=== PATIENT | female | born 1985 ===

== ENCOUNTER 2021-05-28 04:34 | Emergency (ER) | payer BC ==
[2021-05-28] MEDS ORDERED: SODIUM CHLORIDE 0.9% 1000 ML 1,000 ML IV ONE ×2 (04:46→08:59)
[2021-05-28 05:11] LABS: Basophils # (Auto) 0.1 K/mm3 (0.0-0.1); Basophils % (Auto) 1.3 % (0.0-1.8); Eosinophils # (Auto) 0.2 K/mm3 (0.0-0.4); Eosinophils % (Auto) 2.5 % (0.0-4.3); Hematocrit 39.1 % (30.3-42.9); Hemoglobin 12.9 gm/dl (10.1-14.3); Lymphocytes # (Auto) 1.9 K/mm3 (1.2-5.4); Lymphocytes % (Auto) 32.6 % (13.4-35.0); Mean Corpuscular HGB Conc 33 % (30-34); Mean Corpuscular Volume 94 fl (79-97); Monocytes # (Auto) 0.4 K/mm3 (0.0-0.8); Monocytes % (Auto) 7.1 % (0.0-7.3); Platelet Count 239 K/mm3 (140-440); Red Blood Count 4.16 M/mm3 (3.65-5.03); Red Cell Distribution Width 13.8 % (13.2-15.2)
[2021-05-28 05:23] LABS: INR 0.82 (0.87-1.13)
[2021-05-28 05:31] LABS: Blood Urea Nitrogen 12 mg/dL (7-17); Calcium 9.5 mg/dL (8.4-10.2); Hemolysis Index 108
[2021-05-28 05:38] LABS: BUN/Creatinine Ratio 20
--- NOTE | 2021-05-28 06:39 | Ultrasound Report ---
ULTRASOUND OBSTETRIC INDICATION / CLINICAL INFORMATION: Vaginal bleeding/miscarriage. Status post termination on 04/17/21. Serum hCG = 729.6 - Clinical Gestational Age (GA) in weeks, days: Unknown TECHNIQUE: Transabdominal. COMPARISON: None available. FINDINGS: UTERUS: No intrauterine . Uterus measures 13.2 x 6.1 x 6.7 cm. Moderately prominent endometr ial complex measuring 2.3 cm in thickness. ADNEXA: No significant abnormality. FREE FLUID: None. ADDITIONAL FINDINGS: None. IMPRESSION: 1. No intrauterine . Thickened endometrial complex. It is difficult to distinguish a postter mination uterus containing clots from retained products of conception. Clinical correlation is recomm ended. Signer Name: Matt Singh MD Signed: 05/28/2021 6:35 AM Workstation Name: [id number]
--- NOTE | 2021-05-28 06:49 | Emergency Department Report ---
HPI - General Chief Complaint: Vaginal Bleeding Time Seen by Provider: 05/28/21 06:36 - HPI HPI: Room 3 The patient is a 35-year-old female present with a chief complaint of vaginal bleeding. The patient states she was in her usual state of health until approximately 03: 30 this morning when she developed heavy vaginal bleeding. Patient states she is passing large clots and the bleeding was too heavy for pads so she used a towel. Patient denies recent trauma or intercourse. Of note the patient states she had an elective at 6 weeks gestational age on 04/17/2021. The patient states she has not had intercourse since that procedure. ED Past Medical Hx - Past Medical History Previous Medical History?: No - Surgical History Past Surgical History?: No - Family History Family history: no significant - Social History Smoking Status: Never Smoker Substance Use Type: Alcohol (Rarely), Marijuana - Medications Home Medications: Home Medications Medication Instructions Recorded Confirmed Last Taken Type medroxyPROGESTERone ACETATE 5 mg PO QDAY #5 05/28/21 Unknown Rx [Provera] ED Review of Systems ROS: Stated complaint: VAGINAL BLEEDING Other details as noted in HPI Constitutional: denies: fever Eyes: denies: eye pain ENT: denies: throat pain Respiratory: no symptoms reported Cardiovascular: denies: chest pain Endocrine: no symptoms reported Gastrointestinal: denies: abdominal pain Genitourinary: abnormal menses Musculoskeletal: denies: back pain Neurological: denies: headache Physical Exam - Physical Exam Vital Signs: Vital Signs 05/28/21 05/28/21 05/28/21 01:22 04:35 04:43 Temperature 98.9 F Pulse Rate 126 H 74 Respiratory 23 18 Rate Blood Pressure 121/76 Blood Pressure 118/64 [Right] O2 Sat by Pulse 92 99 Oximetry 05/28/21 05/28/21 05/28/21 05:01 05:14 05:21 Temperature Pulse Rate 132 H 107 H Respiratory 12 20 Rate Blood Pressure 116/71 114/66 114/66 Blood Pressure [Right] O2 Sat by Pulse 100 98 99 Oximetry 05/28/21 05/28/21 05:41 06:07 Temperature Pulse Rate 109 H Respiratory 15 Rate Blood Pressure 115/52 Blood Pressure [Right] O2 Sat by Pulse 100 99 Oximetry Physical Exam: GENERAL: The patient is well-developed well-nourished female lying on stretcher not appearing to be in acute. [] HEENT: Normocephalic. Atraumatic. Extraocular motions are intact. Patient has moist mucous membranes. NECK: Supple. Trachea mid CHEST/LUNGS: Clear to auscultation. There is no respiratory distress noted. HEART/CARDIOVASCULAR: Regular. There is no tachycardia. There is no gallop rub or murmur. ABDOMEN: Abdomen is soft, nontender. Patient has normal bowel sounds. There is no abdominal distention. SKIN: There is no rash. There is no edema. There is no diaphoresis. NEURO: The patient is awake, alert, and oriented. The patient is cooperative. The patient has no focal neurologic deficits. The patient has normal speech. GCS 15 MUSCULOSKELETAL: There is no evidence of acute injury. ED Course Vital Signs 05/28/21 05/28/21 05/28/21: 04:35 04:43 Temperature 98.9 F Pulse Rate 126 H 74 Respiratory 23 18 Rate Blood Pressure 121/76 Blood Pressure 118/64 [Right] O2 Sat by Pulse 92 99 Oximetry 05/28/21 05/28/21 05/28/21 05:01 05:14 05:21 Temperature Pulse Rate 132 H 107 H Respiratory 12 20 Rate Blood Pressure 116/71 114/66 114/66 Blood Pressure [Right] O2 Sat by Pulse 100 98 99 Oximetry 05/28/21 05/28/21 05:41 06:07 Temperature Pulse Rate 109 H Respiratory 15 Rate Blood Pressure 115/52 Blood Pressure [Right] O2 Sat by Pulse 100 99 Oximetry ED Medical Decision Making - Lab Data Result diagrams: 05/28/21 04:55 05/28/21 04:46 Laboratory Tests 05/28/21 05/28/21 05/28/21 04:46 04:46 04:55 WBC 6.0 RBC 4.16 Hgb 12.9 Hct 39.1 MCV 94 MCH 31 MCHC 33 RDW 13.8 Plt Count 239 Lymph % (Auto) 32.6 [place] % (Auto) 7.1 Eos % (Auto) 2.5 Baso % (Auto) 1.3 Lymph # (Auto) 1.9 [place] # (Auto) 0.4 Eos # (Auto) 0.2 Baso # (Auto) 0.1 Seg Neutrophils % 56.5 Seg Neutrophils # 3.4 PT INR Sodium 136 L Potassium 4.3 Chloride 101.2 Carbon Dioxide 22 Anion Gap 17 BUN 12 Creatinine 0.6 Estimated GFR > 60 BUN/Creatinine Ratio 20 Glucose 106 H Calcium 9.5 HCG, Quant 729.6 H Blood Type Antibody Screen 05/28/21 05/28/21 04:55 04:55 WBC RBC Hgb Hct MCV MCH MCHC RDW Plt Count Lymph % (Auto) [place] % (Auto) Eos % (Auto) Baso % (Auto) Lymph # (Auto) [place] # (Auto) Eos # (Auto) Baso # (Auto) Seg Neutrophils % Seg Neutrophils # PT 12.3 INR 0.82 L Sodium Potassium Chloride Carbon Dioxide Anion Gap BUN Creatinine Estimated GFR BUN/Creatinine Ratio Glucose Calcium HCG, Quant Blood Type O POSITIVE Antibody Screen Negative - Radiology Data Radiology results: report reviewed (Pelvic ultrasound), image reviewed (Pelvic ultrasound) [address] [address] Ultrasound Report Signed Patient: MARY WOODSON MR#: [id number] 2 : 1985 Acct:[id number] Age/Sex: 35 / F ADM Date: 05/28/21 Loc: ED Attending Dr: Ordering Physician: ISSA MÉNDEZ Date of Service: 05/28/21 Procedure(s): US OB <= 14 weeks fetus Accession Number(s): [id number] cc: ISSA MÉNDEZ ULTRASOUND OBSTETRIC INDICATION / CLINICAL INFORMATION: Vaginal bleeding/miscarriage. Status post termination on 04/17/21. Serum hCG = 729.6 - Clinical Gestational Age (GA) in weeks, days: Unknown TECHNIQUE: Transabdominal. COMPARISON: None available. FINDINGS: UTERUS: No intrauterine . Uterus measures 13.2 x 6.1 x 6.7 cm. Moderately prominent endometrial complex measuring 2.3 cm in thickness. ADNEXA: No significant abnormality. FREE FLUID: None. ADDITIONAL FINDINGS: None. IMPRESSION: 1. No intrauterine . Thickened endometrial complex. It is difficult to distinguish a posttermination uterus containing clots from retained products of conception. Clinical correl ation is recommended. Signer Name: Matt Singh MD Signed: 05/28/2021 6:35 AM Workstation Name: [id number] Transcribed By: DT Dictated By: Ascencion Singh MD Electronically Authenticated By: Ascencion Singh MD Signed Date/Time: 05/28/21634 DD/ 1 TD/TT: Print Cancel - Differential Diagnosis Menorrhagia, dysfunctional uterine bleeding, threatened Critical care attestation.: If time is entered above; I have spent that time in minutes in the direct care of this critically ill patient, excluding procedure time. ED Disposition Clinical Impression: Menorrhagia Disposition: HOME / SELF CARE / HOMELESS Is pt being admited?: No Does the pt Need Aspirin: No Condition: Stable Instructions: Abnormal Uterine Bleeding Additional Instructions: Return to the emergency department should you develop worsening symptoms, inability to tolerate food or liquids, high fever or any other concerns Prescriptions: medroxyPROGESTERone ACETATE [Provera] 5 mg PO QDAY #5 Referrals: GILBERTO CORNELL MD [Staff Physician] - 3-5 Days (Dr. Cornell is an SECURITY DIRECTOR. Please follow-up with her or your own SECURITY DIRECTOR for further evaluation) Time of Disposition: 13:17
[2021-05-28 14:38] VITALS: BP 109/76
== END 2021-05-28 14:00 | disposition home or self-care (01) ==
LOC: ED 08:26
DX: N92.0 Excessive and frequent menstruation with regular cycle (principal)
CPT/HCPCS: 36415; 76801; 80048; 84702; 85025; 85610; 86850; 86900; 86901; 96360; 96361; 99284; J7030; Q0162